=== PATIENT | female | born 1970 | race African-American/Black ===

== ENCOUNTER 2017-01-13 15:46 | Emergency (ER) | payer OTHER ==
[~2017-01-13] VITALS: Ht 152.4 cm; Wt 111.1 kg
[~2017-01-13 15:46] MED LIST: AMITRIPTYLINE50 MG PO; ANUSOL HC30 GM PO; DAYPRO600 M1 PO; HYDROCHLOROTHIA25 MG PO; MEDROL DOSEPAK4 MG PO; NORCO 325 MG-101 TAB PO; PERCOCET 325 MG1 TA2 PO; ROBAXIN750 MG PO; SKELAXIN800 MG PO; SURFAK STOOL S240 MG PO; TRAMADOL50 MG PO; VICODIN 5/500 505 MG PO; VICODIN 500 MG-1 TAB PO; VITAMIN D2000 IU PO; VITAMIN E OIL
[2017-01-13] MEDS ORDERED: MEDROL DOSEPAK4 MG PO (16:44)
== END 2017-01-13 16:49 | disposition home or self-care (01) ==
LOC: ED 15:46
DX: T46.4X5A Adverse effect of angiotensin-converting-enzyme inhibitors, initial encounter (principal); I10 Essential (primary) hypertension; F17.200 Nicotine dependence, unspecified, uncomplicated; Z88.8 Allergy status to other drugs, medicaments and biological substances; Y92.9 Unspecified place or not applicable

== ENCOUNTER → 2017-02-21 | Outpatient (CLI) | payer OTHER | END | disposition home or self-care (01) | LOC: MAMMO 14:02 | DX: Z12.31 Encounter for screening mammogram for malignant neoplasm of breast (principal) ==

== ENCOUNTER → 2017-07-19 | Outpatient (CLI) | payer OTHER ==
[2017-07-19 13:54] LABS: ALBUMIN 2.8 gm/dl (3.1-4.5); ALKALINE PHOSPHATASE 111 U/L (45-117); BUN 3 mg/dl (7-24); CHLORIDE 116 mmol/L (98-107); CHOLESTEROL 103 mg/dL (<200); CREATININE 0.87 mg/dL (0.55-1.02); HDL CHOLESTEROL 50 mg/dl (40-60); LDL CHOLESTEROL 38 mg/dL (9-159); POTASSIUM 3.9 mmol/L (3.5-5.1); SGOT/AST 26 IU/L (3-35); SGPT/ALT 21 U/L (12-78); SODIUM 152 mmol/L (136-145); TOTAL PROTEIN 7.5 gm/dL (6.4-8.2); TRIGLYCERIDES 76 mg/dl (<150); VLDL CHOLESTEROL 15 mg/dL (6-40)
== END | disposition home or self-care (01) ==
LOC: LAB 01:31
PROVIDERS: Family Medicine
DX: I10 Essential (primary) hypertension (principal); E55.9 Vitamin D deficiency, unspecified; R79.89 Other specified abnormal findings of blood chemistry

== ENCOUNTER 2017-12-21 14:12 | Emergency (ER) | payer OTHER ==
[~2017-12-21] VITALS: Ht 152.4 cm; Wt 107.5 kg
--- NOTE | ~2017-12-21 | EKG ---
[place], [place] ELECTROCARDIOGRAM REPORT NAME: TI DALLAS UNIT #: [id number] ROOM: DOCTOR: EPIPHANY DRAFT REPORT BIRTHDATE: [birth year] [facility] Test Date: 2017-12-21 Test Time: 14:50:43 Pat Name: TI DALLAS Department: Room: Gender: F Senior Assistant Manager: EKG.WA : 1970 Requested By: KARLA KOROMA PA-C Order Number: [id number] Reading MD: Valdo Bravo MD Measurements Intervals [place] Rate: 97 P: 22 PA: 151 QRS: 21 QRSD: 95 T: 119 QT: 384 QTc: 488 Interpretive Statements Sinus rhythm Low voltage, precordial leads Nonspecific repol abnormality, diffuse leads Electronically Signed On 12-24-2017 18:35:50 PDT by Valdo Bravo MD CM:EKGRPT:ELECTROCARDIOGRAM REPORT [id number] KARLA KOROMA PA-C EPIPHANY DRAFT REPORT KARLA KOROMA PA-C
[~2017-12-21 14:12] MED LIST changes: -CEPHALEXIN500 M1 PO; -K-TAB20 MEQ PO; -SLOW RELEASE I142 MG PO
[2017-12-21 14:56] LABS: HEMATOCRIT 21.6 % (37.0-47.0); MEAN CELL VOLUME 67.3 fl (81.0-99.0); MEAN CORPUSCULAR HGB 16.8 pg (27.0-31.0); MEAN PLATELET VOLUME 10.3 fl (9.6-12.3); NUCLEATED RED BLOOD CELL 0.3 % (0.0-0.0); PLATELET COUNT AUTOMATED 346 10*3/uL (130-400); RED BLOOD COUNT 3.21 10*6/uL (4.10-5.10); RED CELL DISTRI WIDTH 22.5 % (0-14.5)
[2017-12-21 15:13] LABS: ALBUMIN 3.1 gm/dl (3.1-4.5); ALKALINE PHOSPHATASE 89 U/L (45-117); BUN 5 mg/dl (7-24); CHLORIDE 103 mmol/L (98-107); CREATININE 0.89 mg/dL (0.55-1.02); POTASSIUM 2.9 mmol/L (3.5-5.1); SGOT/AST 15 IU/L (3-35); SGPT/ALT 20 U/L (12-78); SODIUM 138 mmol/L (136-145); TOTAL PROTEIN 7.3 gm/dL (6.4-8.2)
[2017-12-21 15:14] LABS: TROPONIN I < 0.015 ng/ml (<0.045)
[2017-12-21 15:15] LABS: BASOPHILS 1 % (0-1); MICROCYTOSIS MODERATE; PLATELET SUFFICIENCY NORMAL (NORMAL); POLYCHROMASIA SLIGHT; TOTAL CELLS COUNTED 100 #CELLS
[2017-12-21 15:18] LABS: HEMOGLOBIN 5.4 g/dl (12.0-16.0)
[2017-12-21 21:44] LABS: HEMATOCRIT 28.7 % (37.0-47.0)
[2017-12-21] MEDS ORDERED: K-TAB20 MEQ PO (22:24)
[2017-12-21] MEDS ORDERED: SLOW RELEASE I142 MG PO (22:24)
== END 2017-12-21 22:26 | disposition home or self-care (01) ==
LOC: ED 14:12
PROVIDERS: Physician Assistant
DX: D64.9 Anemia, unspecified (principal); E87.6 Hypokalemia; Z98.890 Other specified postprocedural states; Z98.51 Tubal ligation status; Z79.899 Other long term (current) drug therapy; Z88.8 Allergy status to other drugs, medicaments and biological substances; Z88.6 Allergy status to analgesic agent

== ENCOUNTER → 2017-12-21 | Outpatient (CLI) | payer OTHER ==
[~2017-12-21] MED LIST changes: +CEPHALEXIN500 M1 PO; +K-TAB20 MEQ PO; +SLOW RELEASE I142 MG PO
[2017-12-21 11:46] LABS: HEMATOCRIT 22.6 % (37.0-47.0); MEAN CELL VOLUME 67.5 fl (81.0-99.0); MEAN CORPUSCULAR HGB 17.3 pg (27.0-31.0); MEAN CORPUSCULAR HGB CONC 25.7 g/dl (33.0-37.0); MEAN PLATELET VOLUME 9.4 fl (9.6-12.3); NUCLEATED RED BLOOD CELL 0.3 % (0.0-0.0); PLATELET COUNT AUTOMATED 331 10*3/uL (130-400); RED BLOOD COUNT 3.35 10*6/uL (4.10-5.10); RED CELL DISTRI WIDTH 22.5 % (0-14.5); WHITE BLOOD COUNT 6.8 10*3/uL (4.8-10.8)
[2017-12-21 12:07] LABS: BASOPHILS 1 % (0-1); TOTAL CELLS COUNTED 100 #CELLS
[2017-12-21 12:08] LABS: MICROCYTOSIS MODERATE; PLATELET SUFFICIENCY NORMAL (NORMAL); POLYCHROMASIA SLIGHT
[2017-12-21 12:22] LABS: ALBUMIN 3.2 gm/dl (3.1-4.5); ALKALINE PHOSPHATASE 91 U/L (45-117); BUN 5 mg/dl (7-24); CHLORIDE 104 mmol/L (98-107); CREATININE 0.81 mg/dL (0.55-1.02); POTASSIUM 3.8 mmol/L (3.5-5.1); SGOT/AST 29 IU/L (3-35); SGPT/ALT 23 U/L (12-78); SODIUM 137 mmol/L (136-145); TOTAL PROTEIN 7.7 gm/dL (6.4-8.2)
[2017-12-21 13:29] LABS: HEMOGLOBIN 5.8 g/dl (12.0-16.0)
[2017-12-25 05:07] LABS: IMMUNOGLOBULIN IgE 002170 230 IU/mL (0-100)
== END | disposition home or self-care (01) ==
LOC: LAB 11:22
PROVIDERS: Allergy & Immunology
DX: I10 Essential (primary) hypertension (principal); L29.9 Pruritus, unspecified

== ENCOUNTER → 2018-01-04 | Outpatient (CLI) | payer OTHER ==
[~2018-01-04] MED LIST changes: +CEPHALEXIN500 M1 PO; +K-TAB20 MEQ PO; +SLOW RELEASE I142 MG PO
[2018-01-04 15:06] LABS: BUN 5 mg/dl (7-24); CHLORIDE 105 mmol/L (98-107); CREATININE 0.94 mg/dL (0.55-1.02); POTASSIUM 4.1 mmol/L (3.5-5.1); SODIUM 138 mmol/L (136-145)
== END | disposition home or self-care (01) ==
LOC: LAB 13:36 → US 14:00
PROVIDERS: Family Medicine
DX: N92.0 Excessive and frequent menstruation with regular cycle (principal); D25.2 Subserosal leiomyoma of uterus; D50.9 Iron deficiency anemia, unspecified; E87.6 Hypokalemia

== ENCOUNTER 2018-01-11 15:25 | Emergency (ER) | payer OTHER ==
[~2018-01-11] VITALS: Ht 152.4 cm; Wt 107.5 kg
[~2018-01-11 15:25] MED LIST changes: -CEPHALEXIN500 M1 PO
[2018-01-11 16:30] LABS: BASO % 0.4 % (0.0-1.0); EOS # 0.2 10*3/uL (0.0-0.4); EOS % 1.8 % (1.0-4.0); HEMATOCRIT 35.8 % (37.0-47.0); HEMOGLOBIN 10.4 g/dl (12.0-16.0); LYMPH # 2.3 10*3/uL (1.3-4.4); LYMPH % 21.2 % (27.0-41.0); MEAN CELL VOLUME 78.3 fl (81.0-99.0); MEAN CORPUSCULAR HGB 22.8 pg (27.0-31.0); MEAN CORPUSCULAR HGB CONC 29.1 g/dl (33.0-37.0); MEAN PLATELET VOLUME 9.3 fl (9.6-12.3); MONO # 0.6 10*3/uL (0.1-1.0); MONO % 5.1 % (3.0-9.0); NEUT # 7.7 10*3/uL (2.3-7.9); NEUT % 71.2 % (47.0-73.0); PLATELET COUNT AUTOMATED 422 10*3/uL (130-400); RED BLOOD COUNT 4.57 10*6/uL (4.10-5.10); RED CELL DISTRI WIDTH 32.2 % (0-14.5); WHITE BLOOD COUNT 10.8 10*3/uL (4.8-10.8)
[2018-01-11 16:44] LABS: ALBUMIN 3.3 gm/dl (3.1-4.5); ALKALINE PHOSPHATASE 107 U/L (45-117); BUN 6 mg/dl (7-24); CHLORIDE 106 mmol/L (98-107); CREATININE 0.97 mg/dL (0.55-1.02); POTASSIUM 3.4 mmol/L (3.5-5.1); SGOT/AST 14 IU/L (3-35); SGPT/ALT 21 U/L (12-78); SODIUM 141 mmol/L (136-145); TOTAL PROTEIN 7.8 gm/dL (6.4-8.2)
[2018-01-11] MEDS ORDERED: CEPHALEXIN500 M1 PO (17:27)
== END 2018-01-11 17:31 | disposition home or self-care (01) ==
LOC: ED 15:25
PROVIDERS: Nurse Practitioner Family
DX: I82.612 Acute embolism and thrombosis of superficial veins of left upper extremity (principal); Z98.51 Tubal ligation status; Z98.890 Other specified postprocedural states; Z88.8 Allergy status to other drugs, medicaments and biological substances; Z79.899 Other long term (current) drug therapy

== ENCOUNTER → 2018-05-15 | Outpatient (CLI) | payer OTHER ==
[~2018-05-15] MED LIST changes: +CEPHALEXIN500 M1 PO
== END | disposition home or self-care (01) ==
LOC: MAMMO 13:24
DX: Z12.31 Encounter for screening mammogram for malignant neoplasm of breast (principal)

== ENCOUNTER 2018-07-04 12:59 | Emergency (ER) | payer OTHER ==
[~2018-07-04] VITALS: Ht 167.6 cm; Wt 101.2 kg
[~2018-07-04 12:59] MED LIST changes: +HYDROCHLOROTH12.5 M3 PO; -HYDROCHLOROTHIA25 MG PO
[2018-07-04] MEDS ORDERED: ESTRACE2 MG PO (13:07)
[2018-07-04 14:28] LABS: BASO # 0.1 10*3/uL (0.0-0.1); BASO % 0.6 % (0.0-1.0); EOS # 0.3 10*3/uL (0.0-0.4); HEMATOCRIT 34.1 % (37.0-47.0); HEMOGLOBIN 9.8 g/dl (12.0-16.0); LYMPH # 2.7 10*3/uL (1.3-4.4); LYMPH % 29.3 % (27.0-41.0); MEAN CELL VOLUME 78.4 fl (81.0-99.0); MEAN CORPUSCULAR HGB 22.5 pg (27.0-31.0); MEAN CORPUSCULAR HGB CONC 28.7 g/dl (33.0-37.0); MEAN PLATELET VOLUME 9.9 fl (9.6-12.3); MONO # 0.6 10*3/uL (0.1-1.0); MONO % 6.3 % (3.0-9.0); NEUT # 5.6 10*3/uL (2.3-7.9); NEUT % 60.4 % (47.0-73.0); PLATELET COUNT AUTOMATED 590 10*3/uL (130-400); RED BLOOD COUNT 4.35 10*6/uL (4.10-5.10); RED CELL DISTRI WIDTH 21.9 % (0-14.5); WHITE BLOOD COUNT 9.2 10*3/uL (4.8-10.8)
[2018-07-04 14:43] LABS: ALBUMIN 3.4 gm/dl (3.1-4.5); ALKALINE PHOSPHATASE 110 U/L (45-117); BUN 8 mg/dl (7-24); CHLORIDE 103 mmol/L (98-107); CREATININE 0.79 mg/dL (0.55-1.02); POTASSIUM 3.9 mmol/L (3.5-5.1); SGOT/AST 16 IU/L (3-35); SGPT/ALT 35 U/L (12-78); SODIUM 139 mmol/L (136-145); TOTAL PROTEIN 8.4 gm/dL (6.4-8.2)
== END 2018-07-04 15:39 | disposition home or self-care (01) ==
LOC: ED 12:59
PROVIDERS: Nurse Practitioner Family
DX: R09.1 Pleurisy (principal); F17.200 Nicotine dependence, unspecified, uncomplicated; Z79.899 Other long term (current) drug therapy; Z88.8 Allergy status to other drugs, medicaments and biological substances

== ENCOUNTER → 2019-01-16 | Outpatient (CLI) | payer OTHER ==
[~2019-01-16] MED LIST changes: +B12,B-12,B 12500 MC1 PO; +ESTRACE2 MG PO; +IRON325 M1 PO; +KLOR-CON M2020 ME1 PO; +LOPRESSOR25 MG PO; +NATURE'S BLEND F1 MG PO; +TRAMADOL HCL50 MG PO; +VITAMIN D5000 UNI1 PO
[2019-01-16 15:08] LABS: ALBUMIN 3.5 gm/dl (3.1-4.5); BUN 8 mg/dl (7-24); CHLORIDE 106 mmol/L (98-107); CREATININE 0.95 mg/dL (0.55-1.02); POTASSIUM 3.8 mmol/L (3.5-5.1); SGOT/AST 36 IU/L (3-35); SGPT/ALT 41 U/L (12-78); SODIUM 141 mmol/L (136-145); TOTAL PROTEIN 7.6 gm/dL (6.4-8.2)
[2019-01-16 15:17] LABS: ALKALINE PHOSPHATASE 99 U/L (45-117)
== END | disposition home or self-care (01) ==
LOC: LAB 14:07
PROVIDERS: Family Medicine
DX: G60.9 Hereditary and idiopathic neuropathy, unspecified (principal)

== ENCOUNTER 2019-02-01 15:31 | Inpatient (IN) | payer OTHER ==
[~2019-02-01] VITALS: Ht 177.8 cm; Wt 112.6 kg
[2019-02-01] VITALS (8 sets, daily range): BP systolic 110–152; BP diastolic 54–98
--- NOTE | ~2019-02-01 | EKG ---
[place], [place] ELECTROCARDIOGRAM REPORT NAME: TI DALLAS UNIT #: [id number] ROOM: 403 DOCTOR: MAURICIO DRAFT REPORT BIRTHDATE: [birth year] [facility] Test Date: 2019-02-01 Test Time: 22:23:29 Pat Name: TI DALLAS Department: Room: 403 Gender: F Accounting Intern: Edward Jiang : 1970 Requested By: LEONOR KEVIN Order Number: [id number] Reading MD: Manny Quan MD Measurements Intervals [place] Rate: 126 P: 73 [place]: 73 QRS: 38 QRSD: 78 T: 226 QT: 325 QTc: 471 Interpretive Statements Sinus tachycardia with ventricular bigeminy Short [place] interval LAE, consider biatrial enlargement Electronically Signed On 02-02-2019 7:10:10 PDT by Manny Quna MD CM:EKGRPT:ELECTROCARDIOGRAM REPORT [id number] LEONOR MARTÍNEZ DRAFT REPORT LEONOR KEVIN M.D.
--- NOTE | ~2019-02-01 | EKG ---
[place], [place] ELECTROCARDIOGRAM REPORT NAME: TI DALLAS UNIT #: [id number] ROOM: 403 DOCTOR: MAURICIO DRAFT REPORT BIRTHDATE: [birth year] [facility] Test Date: 2019-02-01 Test Time: 23:47:40 Pat Name: TI DALLAS Department: Room: 403 Gender: F Chemistry Intern: Noreen Quan : 1970 Requested By: LEONOR KEVIN Order Number: [id number] Reading MD: Manny Quan MD Measurements Intervals [place] Rate: 112 P: 68 [place]: 132 QRS: 47 QRSD: 79 T: 127 QT: 380 QTc: 519 Interpretive Statements Sinus rhythm Ventricular bigeminy Biatrial enlargement Electronically Signed On 02-02-2019 7:11:26 PDT by Manny Quan MD CM:EKGRPT:ELECTROCARDIOGRAM REPORT [id number] LEONOR MARTÍNEZ DRAFT REPORT LEONOR KEVIN M.D.
--- NOTE | ~2019-02-01 | EKG ---
[place], [place] ELECTROCARDIOGRAM REPORT NAME: TI DALLAS UNIT #: [id number] ROOM: 403 DOCTOR: MAURICIO DRAFT REPORT BIRTHDATE: [birth year] [facility] Test Date: 2019-02-01 Test Time: 15:36:04 Pat Name: TI DALLAS Department: Room: 403 Gender: F Check Clerk: : 1970 Requested By: LEONOR KEVIN Order Number: [id number] Reading MD: Manny Quan MD Measurements Intervals [place] Rate: 73 P: 21 SD: 144 QRS: 38 QRSD: 89 T: 76 QT: 405 QTc: 447 Interpretive Statements Sinus rhythm Multiform ventricular premature complexes Low voltage, precordial leads Nonspecific T abnormalities, anterior leads Compared to ECG 12/21/2017 14:50:43 Ventricular premature complex(es) now present T-wave abnormality now present Electronically Signed On 02-02-2019 7:02:17 PDT by Manny Quan MD CM:EKGRPT:ELECTROCARDIOGRAM REPORT [id number] LEONOR MARTÍNEZ DRAFT REPORT LEONOR KEVIN M.D.
--- NOTE | ~2019-02-01 | PR ---
[place], [place] PROGRESS NOTE [id number] UNIT #: [id number] ROOM: 403 DOCTOR: OLIVIA ROGERS BIRTHDATE: [birth year] DOS: 02/03/2019 CARDIOLOGY PROGRESS NOTE REASON FOR VISIT: The patient is being seen in followup for palpitations, frequent PVCs. SUBJECTIVE: The patient is feeling better today, with less palpitations. Denies chest pain or shortness of breath. Echocardiogram reviewed by me today, showed normal LV systolic function with an EF of 60-65% and no valvular disease. PVC burden has decreased on telemetry and by symptoms. Potassium today was better, but still only 3.8. OBJECTIVE: VITAL SIGNS: Afebrile, pulse 56, respirations 18, blood pressure 91/45, saturating 100% on room air. GENERAL APPEARANCE: Obese lady, sitting in bed, in no distress. NECK: Supple. JVP normal. No carotid bruits. RESPIRATORY: Lungs are clear. CARDIOVASCULAR: Regular rhythm with normal rate. No murmurs. ABDOMEN: Obese. Positive bowel sounds. Soft, nontender. EXTREMITIES: Free of edema. LABORATORY DATA: Hemoglobin 11.9, potassium 3.8, creatinine 1.02. Echo as described with normal LV systolic function, EF 60-65%, no valvular disease. There was mild LVH. CURRENT CARDIAC MEDICATIONS: Include potassium chloride 20 mEq p.o. b.i.d., metoprolol tartrate 25 mg p.o. b.i.d., hydrochlorothiazide 12.5 mg daily. IMPRESSION: 1. Frequent PVCs, in the setting of a structurally normal heart. 2. Hypokalemia. 3. History of hypertension, currently borderline blood pressures. 4. Mild acute diastolic heart failure, completely resolved. 5. Obesity. 6. Untreated sleep apnea. 7. Joint pain. RECOMMENDATIONS: 1. We will continue metoprolol 25 b.i.d. 2. If she remains on hydrochlorothiazide for blood pressure, would send her out with daily potassium supplementation. Though if blood pressures are controlled with metoprolol alone, hydrochlorothiazide and potassium can be stopped altogether. 3. Recommend outpatient sleep study. 4. Counseled on risk factor modification including weight loss and smoking cessation. 5. She can follow up with me in the office in a couple of weeks. She can be discharged from my standpoint. [place], [place] PROGRESS NOTE NAME: TI DALLAS UNIT #: [id number] ROOM: 403 DOCTOR: OLIVIA ROGERS BIRTHDATE: [birth year] DrGlenna ROGERS MD CM:PNTRANS [id number] OLIVIA ROGERS 02/03/19 1648 interface
--- NOTE | ~2019-02-01 | CON ---
[place], [place] REPORT OF CONSULTATION NAME: TI DALLAS UNIT #: [id number] ROOM: 403 DOCTOR: OLIVIA ROGERS BIRTHDATE: [birth year] DOS: 02/02/2019 CARDIOLOGY CONSULTATION REASON FOR CONSULTATION: Frequent PVCs. REQUESTING PHYSICIAN: Dr. Zhang Vora. HISTORY OF PRESENT ILLNESS: The patient is a very pleasant 48-year-old female with a history of hypertension and obesity, no prior cardiac history. She presents for evaluation of joint pain as well as palpitations. She was over the past 2-3 weeks has significant palpitations. They are frequent and bothersome. She has had prior history of this in the past, particularly when she was about 20 years ago, at which time she states the palpitations are even worse. She recalls having Holter monitor at that time, but never received any specific diagnosis or treatment. She did have an echocardiogram in our system from 2014 that showed normal LV systolic function with an EF of 65%, mild LVH. Otherwise, she has had no cardiac evaluations. She also states she has had some shortness of breath with exertion over the past few weeks, which is new, she has attributed to smoking. She has noted some lower extremity edema, which she says has been there for several years. She had difficulty with ambulation, mainly due to chronic back pain and back surgery that limits her ability to walk any significant distance. She denies any dizziness, lightheadedness, syncope. No family history of sudden cardiac . In the ER, she was noted to have very frequent PVCs, bigeminy and trigeminy and has persisted with this pattern throughout the night and throughout the day today on telemetry. Her potassium was noted to be slightly low at 3.6 yesterday and even lower today at 3.2 after she had received some IV furosemide. Chest x-ray did demonstrate mild vascular congestion. Today, she does not feel any different. She still feels palpitations. The other main problem that brought her for evaluation with severe joint pain and tingling in the hands, which has been going on for several months, she is being evaluated by her PCP was apparently found to have a positive SEDRICK on some blood work. REVIEW OF SYSTEMS: As described above. Additionally, the patient states that she was supposed to have gotten out a sleep study, but this was never able to be arranged, she is sure she has sleep apnea, but has never been treated. Additionally, she has had allergies to multiple medications including losartan, which caused angioedema. She has been on hydrochlorothiazide since about the beginning of this year. Did not recall being told she has had low potassium levels, does not take any regular potassium supplementation. Remainder of the review of systems negative except as described above. PAST MEDICAL HISTORY: Hypertension, chronic back pain, obesity, anemia related to heavy menstrual bleeding. PAST SURGICAL HISTORY: Back surgery, spinal fusion, abdominal hysterectomy. [place], [place] REPORT OF CONSULTATION NAME: TI DALLAS UNIT #: [id number] ROOM: 403 DOCTOR: OLIVIA ROGERS BIRTHDATE: [birth year] SOCIAL HISTORY: She is . 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 She is an active smoker. Also, reports alcohol and marijuana use. FAMILY HISTORY: Her mother had history of diabetes and is . Father's medical history is unknown. ALLERGIES: Listed to LISINOPRIL, BACLOFEN, PREGABALIN AND LOSARTAN she also be listed. HOME MEDICATIONS: Include hydrochlorothiazide 12.5 mg daily, tramadol, ferrous sulfate. PHYSICAL EXAMINATION: VITAL SIGNS: Afebrile, pulse 60, respirations 20, blood pressure 122/60, saturating 100% on room air. GENERAL APPEARANCE: She is a middle-aged, obese, black female, lying in bed, in no distress. ENT: Moist mucous membranes. NECK: Supple. JVP is normal. No carotid bruits. RESPIRATORY: Lungs mostly clear with scant basilar rales. CARDIOVASCULAR: Irregular with frequent ectopic beats. No murmurs. ABDOMEN: Obese. Positive bowel sounds. Soft, nontender. EXTREMITIES: Warm, well perfused. Moves all extremities. There is trivial edema pretibially. SKIN: No lesions or rashes. NEUROLOGICAL: Nonfocal. LABORATORY DATA: Hemoglobin 12.3, platelets 330. Today, potassium 3.2, BUN 10, creatinine 0.99, hemoglobin A1c 5.8%. Magnesium is 2.2. Three sets of troponins negative. Liver functions normal. LDL cholesterol is 65. TSH and free T4 are within normal limits. Chest x-ray showed mild vascular congestion. Electrocardiogram showed sinus rhythm with ventricular bigeminy suggestion of biatrial enlargement as well. Previous EKG showed sinus tachycardia with ventricular bigeminy. Initial EKG shows sinus rhythm, 73 beats per minute with multiform PVCs. IMPRESSION: 1. Frequent PVCs including couplets, bigeminy, trigeminy. 2. No previous history of structural heart disease except for mild left ventricular hypertrophy by echo in 2015. 3. Hypokalemia. 4. Hypertension. 5. Appears to be mild acute heart failure, unclear systolic or diastolic, resolved with a couple doses of IV diuretics. 6. Obesity. [place], [place] REPORT OF CONSULTATION NAME: TI DALLAS UNIT #: [id number] ROOM: 403 DOCTOR: LOIVIA ROGERS BIRTHDATE: [birth year] 7. Untreated sleep apnea. 8. Joint pain for which she is being evaluated. RECOMMENDATIONS: 1. Given the frequency of the PVCs, as well as the new finding of mild heart failure, I am concerned for a cardiomyopathy. It is possible that she may have an underlying cardiomyopathy causing to have a frequent PVCs, on the other hand, frequent PVCs could lead to development of a cardiomyopathy as well. 2. A 2D echocardiogram will be done tomorrow. 3. We will start metoprolol tartrate because of the frequency of the PVCs and they are symptomatic, 25 p.o. b.i.d. 4. Aggressive potassium replacement, keep potassium greater than 4, magnesium greater than 2. 5. Recommend outpatient sleep study. 6. Risk factor modification to include weight loss. She is certainly limited physical activity because of her chronic back issues. 7. Can continue her hydrochlorothiazide, may need regular potassium supplementation since she has had allergies and intolerance to other antihypertensive medications. 8. Smoking cessation counseling also provided. Thank you for the consultation. We will continue to follow. Dr. OLIVIA ROGERS MD CM:CONSTR:REPORT OF CONSULTATION 1222 02/02/19 [id number] interface
[~2019-02-01 15:31] MED LIST changes: -B12,B-12,B 12500 MC1 PO; -IRON325 M1 PO; -KLOR-CON M2020 ME1 PO; -LOPRESSOR25 MG PO; -NATURE'S BLEND F1 MG PO; -TRAMADOL HCL50 MG PO; -VITAMIN D5000 UNI1 PO
[2019-02-01 15:50] LABS: BASO # 0.1 10*3/uL (0.0-0.1); BASO % 0.7 % (0.0-1.0); EOS # 0.2 10*3/uL (0.0-0.4); EOS % 2.5 % (1.0-4.0); HEMATOCRIT 39.9 % (37.0-47.0); HEMOGLOBIN 12.6 g/dl (12.0-16.0); LYMPH # 1.9 10*3/uL (1.3-4.4); LYMPH % 27.6 % (27.0-41.0); MEAN CELL VOLUME 87.1 fl (81.0-99.0); MEAN CORPUSCULAR HGB 27.5 pg (27.0-31.0); MEAN CORPUSCULAR HGB CONC 31.6 g/dl (33.0-37.0); MEAN PLATELET VOLUME 10.7 fl (9.6-12.3); MONO # 0.7 10*3/uL (0.1-1.0); MONO % 10.9 % (3.0-9.0); NEUT % 58.2 % (47.0-73.0); PLATELET COUNT AUTOMATED 359 10*3/uL (130-400); RED BLOOD COUNT 4.58 10*6/uL (4.10-5.10); RED CELL DISTRI WIDTH 18.9 % (0-14.5); WHITE BLOOD COUNT 6.8 10*3/uL (4.8-10.8)
[2019-02-01] MEDS ORDERED: TRAMADOL HCL50 MG PO (15:59)
[2019-02-01] MEDS ORDERED: IRON325 M1 PO (15:59)
[2019-02-01 16:08] LABS: ALBUMIN 3.4 gm/dl (3.1-4.5); ALKALINE PHOSPHATASE 96 U/L (45-117); BUN 6 mg/dl (7-24); CHLORIDE 106 mmol/L (98-107); CREATININE 0.96 mg/dL (0.55-1.02); POTASSIUM 3.6 mmol/L (3.5-5.1); SGOT/AST 25 IU/L (3-35); SGPT/ALT 33 U/L (12-78); SODIUM 141 mmol/L (136-145); TOTAL PROTEIN 7.4 gm/dL (6.4-8.2)
[2019-02-01 16:09] LABS: TROPONIN I < 0.015 ng/ml (<0.045)
[2019-02-01 16:15] LABS: ACT PARTIAL THROMBO TIME 22.8 SECONDS (20.0-32.1); INTERNATIONAL NORM RATIO 0.9 (2.0-3.5)
--- NOTE | 2019-02-01 18:05 | NUR ---
A 48, admitted to , under the services of JUDSON Galdamez DO with a diagnosis of PULMONARY CONGESTION,PALPITATIONS,CARDIAC ARRYTHMIA, . Chief complaint is SHORTNESS OF BREATH. Patient arrived via bed from ER. Monitor applied. Initial assessment completed. Vital signs taken and recorded. JUDSON GALDAMEZ DO notified of admission to the unit. Orders received. See assessment for past medical history, medications and allergies. Patient and/or family oriented to unit. [facility] visitation policy reviewed. Clothing/patient valuable form completed. KARLA SALMERON
--- NOTE | 2019-02-01 19:16 | NUR ---
CONSULT CALLED TO DR ROGERS ANSWERING SERVICE. MESSAGE LEFT ON ANSWERING SERVICE. AWAITING CALL BACK. WILL NOTIFY PM SHIFT.
--- NOTE | 2019-02-01 20:14 | NUR ---
DR THACKER NOTIFIED THAT MED REC IS UPDATED PER PATIENT.
--- NOTE | 2019-02-01 22:00 | NUR ---
PATIENT REQUESTING MEDICATION FOR ARTHRITIC PAIN. NORCO ADMINISTERED PRESCRIBED. WILL MONITOR FOR PAIN.
--- NOTE | 2019-02-01 23:00 | NUR ---
PATIENT RESTING WITH EYES CLOSED AT THIS TIME. WILL MONITOR.
[2019-02-02] VITALS: BP 136/52
--- NOTE | 2019-02-02 01:24 | NUR ---
24 HR chart check completed.
--- NOTE | 2019-02-02 06:07 | NUR ---
PATIENT REQUESTING PAIN MEDICATION FOR ARTHRITIC PAIN RATED 7/10 ON 0/10. NORCO ADMINISTERED PRESCRIBED. WILL MONITOR FOR EFFECTIVENESS.
[2019-02-02 06:25] LABS: BASO # 0.1 10*3/uL (0.0-0.1); BASO % 1.2 % (0.0-1.0); EOS # 0.2 10*3/uL (0.0-0.4); HEMOGLOBIN 12.3 g/dl (12.0-16.0); LYMPH # 2.2 10*3/uL (1.3-4.4); LYMPH % 38.5 % (27.0-41.0); MEAN CELL VOLUME 86.7 fl (81.0-99.0); MEAN CORPUSCULAR HGB 27.3 pg (27.0-31.0); MEAN CORPUSCULAR HGB CONC 31.5 g/dl (33.0-37.0); MEAN PLATELET VOLUME 11.1 fl (9.6-12.3); MONO # 0.5 10*3/uL (0.1-1.0); MONO % 8.5 % (3.0-9.0); NEUT # 2.7 10*3/uL (2.3-7.9); NEUT % 48.6 % (47.0-73.0); PLATELET COUNT AUTOMATED 330 10*3/uL (130-400); RED CELL DISTRI WIDTH 18.7 % (0-14.5); WHITE BLOOD COUNT 5.6 10*3/uL (4.8-10.8)
[2019-02-02 06:39] LABS: ACT PARTIAL THROMBO TIME 22.8 SECONDS (20.0-32.1); INTERNATIONAL NORM RATIO 0.9 (2.0-3.5)
[2019-02-02 06:42] LABS: ALBUMIN 2.9 gm/dl (3.1-4.5); ALKALINE PHOSPHATASE 93 U/L (45-117); BUN 10 mg/dl (7-24); CHLORIDE 107 mmol/L (98-107); CHOLESTEROL 156 mg/dL (<200); CREATININE 0.99 mg/dL (0.55-1.02); FREE T4 1.05 ng/dl (0.76-1.46); HDL CHOLESTEROL 72 mg/dl (40-60); LDL CHOLESTEROL 65 mg/dL (9-159); PHOSPHOROUS 4.1 mg/dL (2.5-4.9); POTASSIUM 3.2 mmol/L (3.5-5.1); SGOT/AST 21 IU/L (3-35); SGPT/ALT 30 U/L (12-78); SODIUM 143 mmol/L (136-145); TOTAL PROTEIN 6.7 gm/dL (6.4-8.2); TRIGLYCERIDES 96 mg/dl (<150); VLDL CHOLESTEROL 19 mg/dL (6-40)
--- NOTE | 2019-02-02 07:51 | NUR ---
Shift chart check completed.
[2019-02-02 08:00] VITALS: BP 122/60
[2019-02-02 08:14] LABS: VITAMIN D, 25-HYDROXY 13.6 ng/mL (30-100)
[2019-02-02 12:00] VITALS: BP 105/61
--- NOTE | 2019-02-02 12:20 | NUR ---
IV STARTED LEFT FOREARM #22, GOOD BLOOD RETURN, PT TOLERATED WELL.
--- NOTE | 2019-02-02 12:36 | NUR ---
PT EDUCATED ON METOPROLOL FIRST DOSE. PT UNDERSTANDS MEDICATION
[2019-02-02 16:00] VITALS: BP 106/66
--- NOTE | 2019-02-02 19:35 | NUR ---
PT COMPLAIN OF BACK, ARM/HAND ARTHRITIS PAIN, 12/11 - NORCO GIVEN. SEE EMAR
--- NOTE | 2019-02-02 19:53 | NUR ---
24 HR chart check completed.
[2019-02-02 20:00] VITALS: BP 121/65; BP 95/52
--- NOTE | 2019-02-02 20:00 | NUR ---
RESTING IN BED WITH NO DISTRESS NOTED. RESPIRATIONS EASY. LUNGS DIMINISHED, CLEAR. PULSE OX 97% RA. DENIES PALPITATIONS. CALL LIGHT WITHIN REACH. NO VOICED COMPLAINTS
[2019-02-02 22:00] VITALS: BP 110/68
--- NOTE | 2019-02-02 22:10 | NUR ---
REQUESTED AND RECEIVED ULTRAM PER PRN ORDER FOR COMPLAINTS OF BACK AND JOINT PAIN RATING A 10. CALL LIGHT WITHIN REACH. WILL MONITOR FOR EFFECTIVENESS
--- NOTE | 2019-02-02 23:30 | NUR ---
EARLIER MEDS APPEAR EFFECTIVE. SLEEPING. RESPIRATIONS EASY. CALL LIGHT WITHIN REACH
[2019-02-03] VITALS: BP 116/60
--- NOTE | 2019-02-03 00:37 | NUR ---
MEDICATED WITH NORCO PER PRN ORDER FOR COMPLAINTS OF BACK AND JOINT PAIN RATING A 5. CALL LIGHT WITHIN REACH. WILL MONITOR FOR EFFECTIVENESS
--- NOTE | 2019-02-03 02:00 | NUR ---
MEDS APPEAR EFFECTIVE. SLEEPING. RESPIRATIONS EASY. CALL LIGHT WITHIN REACH
--- NOTE | 2019-02-03 06:00 | NUR ---
SLEPT THROUGHOUT NIGHT WITH NO DISTRESS NOTED. RESPIRATIONS EASY. CALL LIGHT WITHIN REACH
[2019-02-03 06:37] LABS: BASO # 0.1 10*3/uL (0.0-0.1); BASO % 0.9 % (0.0-1.0); EOS # 0.2 10*3/uL (0.0-0.4); EOS % 3.2 % (1.0-4.0); HEMOGLOBIN 11.9 g/dl (12.0-16.0); LYMPH # 2.4 10*3/uL (1.3-4.4); LYMPH % 42.7 % (27.0-41.0); MEAN CELL VOLUME 88.4 fl (81.0-99.0); MEAN CORPUSCULAR HGB 27.7 pg (27.0-31.0); MEAN CORPUSCULAR HGB CONC 31.3 g/dl (33.0-37.0); MONO # 0.5 10*3/uL (0.1-1.0); MONO % 9.2 % (3.0-9.0); NEUT # 2.4 10*3/uL (2.3-7.9); NEUT % 43.8 % (47.0-73.0); PLATELET COUNT AUTOMATED 324 10*3/uL (130-400); WHITE BLOOD COUNT 5.6 10*3/uL (4.8-10.8)
[2019-02-03 06:57] LABS: BUN 13 mg/dl (7-24); CHLORIDE 105 mmol/L (98-107); CREATININE 1.02 mg/dL (0.55-1.02); POTASSIUM 3.8 mmol/L (3.5-5.1); SODIUM 140 mmol/L (136-145)
--- NOTE | 2019-02-03 07:00 | NUR ---
REQUESTED AND RECEIVED NORCO PER PRN ORDER FOR COMPLAINTS OF LOWER BACK PAIN RATING A 10. CALL LIGHT WITHIN REACH. WILL MONITOR FOR EFFECTIVENESS
[2019-02-03 08:00] VITALS: BP 118/72
[2019-02-03 12:00] VITALS: BP 91/45
--- NOTE | 2019-02-03 13:33 | NUR ---
24 HOUR CHART CHECK COMPLETE.
[2019-02-03] MEDS ORDERED: B12,B-12,B 12500 MC1 PO (13:52)
[2019-02-03] MEDS ORDERED: VITAMIN D5000 UNI1 PO (13:52)
[2019-02-03] MEDS ORDERED: NATURE'S BLEND F1 MG PO (13:52)
[2019-02-03] MEDS ORDERED: LOPRESSOR25 MG PO (13:52)
[2019-02-03] MEDS ORDERED: KLOR-CON M2020 ME1 PO (13:52)
[2019-02-03 14:00] VITALS: BP 106/62
--- NOTE | 2019-02-03 14:42 | NUR ---
Discharge instructions reviewed with patient/family. Patient receptive and verbalizes understanding. Follow-up care arranged. Written instructions given to patient/family. SARAH DAMON
== END 2019-02-03 14:42 | disposition home or self-care (01) | DRG 291 ==
LOC: ED 15:31 → EDHOLD 17:40 → 4E 17:51
PROVIDERS: Emergency Medicine; Internal Medicine; ADMIT Internal Medicine
DX: I11.0 Hypertensive heart disease with heart failure (principal); I50.31 Acute diastolic (congestive) heart failure; E44.0 Moderate protein-calorie malnutrition; I49.9 Cardiac arrhythmia, unspecified; R09.89 Other specified symptoms and signs involving the circulatory and respiratory systems; R00.2 Palpitations; G47.30 Sleep apnea, unspecified; E83.41 Hypermagnesemia; M19.91 Primary osteoarthritis, unspecified site; E66.01 Morbid (severe) obesity due to excess calories; G89.29 Other chronic pain; M54.5 Low back pain; E87.6 Hypokalemia; F17.210 Nicotine dependence, cigarettes, uncomplicated; Z88.8 Allergy status to other drugs, medicaments and biological substances; Z90.710 Acquired absence of both cervix and uterus; Z90.79 Acquired absence of other genital organ(s); Z90.722 Acquired absence of ovaries, bilateral; Z98.1 Arthrodesis status; Z83.3 Family history of diabetes mellitus; Z81.8 Family history of other mental and behavioral disorders; Z79.899 Other long term (current) drug therapy; Z71.6 Tobacco abuse counseling; Z71.3 Dietary counseling and surveillance; Z68.35 Body mass index [BMI] 35.0-35.9, adult

== ENCOUNTER → 2019-02-06 | Outpatient (CLI) | payer OTHER ==
[~2019-02-06] MED LIST changes: +B12,B-12,B 12500 MC1 PO; +IRON325 M1 PO; +KLOR-CON M2020 ME1 PO; +LOPRESSOR25 MG PO; +NATURE'S BLEND F1 MG PO; +TRAMADOL HCL50 MG PO; +VITAMIN D5000 UNI1 PO
[2019-02-06 12:03] LABS: BUN 6 mg/dl (7-24); CHLORIDE 106 mmol/L (98-107); CREATININE 0.87 mg/dL (0.55-1.02); SODIUM 140 mmol/L (136-145)
[2019-02-07 14:09] LABS: SJOGREN ANTI-SS-A <0.2 AI (0.0-0.9); SJOREN AB, ANTI-SS-B <0.2 AI (0.0-0.9)
[2019-02-08 12:05] LABS: LUPUS DRVVT 33.5 sec (0.0-47.0); LUPUS REFLEX INTERPRETATION Comment: (.); PTT-LA 28.9 sec (0.0-51.9)
[2019-02-10 12:07] LABS: METHYLMALONIC ACID 134 nmol/L (0-378)
== END | disposition home or self-care (01) ==
LOC: LAB 11:05
PROVIDERS: Family Medicine
DX: E53.8 Deficiency of other specified B group vitamins (principal); E87.6 Hypokalemia; E83.41 Hypermagnesemia; R76.0 Raised antibody titer

== ENCOUNTER → 2019-02-07 | Outpatient (CLI) | payer OTHER ==
[2019-02-07 14:25] LABS: BUN 7 mg/dl (7-24); CHLORIDE 109 mmol/L (98-107); CREATININE 0.95 mg/dL (0.55-1.02); SODIUM 142 mmol/L (136-145)
== END | disposition home or self-care (01) ==
LOC: LAB 00:30
PROVIDERS: Student in an Organized Health Care Education/Training Program
DX: E87.6 Hypokalemia (principal); I49.9 Cardiac arrhythmia, unspecified; R00.2 Palpitations

== ENCOUNTER → 2019-03-06 | Outpatient (CLI) | payer OTHER ==
[~2019-03-06] MED LIST changes: +KEFLEX500 M1 PO; +SEPTDS PO
== END | disposition home or self-care (01) ==
LOC: LAB 15:21
DX: E53.8 Deficiency of other specified B group vitamins (principal)

== ENCOUNTER 2019-04-07 15:36 | Emergency (ER) | payer OTHER ==
[~2019-04-07] VITALS: Ht 152.4 cm; Wt 108.9 kg
[~2019-04-07 15:36] MED LIST changes: -KEFLEX500 M1 PO; -SEPTDS PO
[2019-04-07] MEDS ORDERED: SEPTDS PO (17:53)
[2019-04-07] MEDS ORDERED: KEFLEX500 M1 PO (17:53)
== END 2019-04-07 18:02 | disposition home or self-care (01) ==
LOC: ED 15:36
DX: L02.411 Cutaneous abscess of right axilla (principal); L02.01 Cutaneous abscess of face; L73.2 Hidradenitis suppurativa; F17.210 Nicotine dependence, cigarettes, uncomplicated; Z88.8 Allergy status to other drugs, medicaments and biological substances; Z79.899 Other long term (current) drug therapy

== ENCOUNTER → 2019-04-11 | Outpatient (CLI) | payer OTHER ==
[~2019-04-11] MED LIST changes: +KEFLEX500 M1 PO; +SEPTDS PO
== END | disposition home or self-care (01) ==
LOC: LAB 14:52
DX: R53.83 Other fatigue (principal)

== ENCOUNTER → 2019-04-23 | Outpatient (CLI) | payer OTHER ==
[2019-04-23 16:03] LABS: BASO % 0.6 % (0.0-1.0); EOS # 0.1 10*3/uL (0.0-0.4); EOS % 1.6 % (1.0-4.0); HEMATOCRIT 45.4 % (37.0-47.0); HEMOGLOBIN 13.9 g/dl (12.0-16.0); LYMPH # 1.8 10*3/uL (1.3-4.4); LYMPH % 25.5 % (27.0-41.0); MEAN CELL VOLUME 91.3 fl (81.0-99.0); MEAN CORPUSCULAR HGB CONC 30.6 g/dl (33.0-37.0); MEAN PLATELET VOLUME 10.6 fl (9.6-12.3); MONO # 0.6 10*3/uL (0.1-1.0); MONO % 8.2 % (3.0-9.0); NEUT # 4.5 10*3/uL (2.3-7.9); NEUT % 63.8 % (47.0-73.0); PLATELET COUNT AUTOMATED 290 10*3/uL (130-400); RED BLOOD COUNT 4.97 10*6/uL (4.10-5.10); RED CELL DISTRI WIDTH 15.7 % (0-14.5); WHITE BLOOD COUNT 7.1 10*3/uL (4.8-10.8)
[2019-04-23 16:16] LABS: IRON 120 ug/dL (50-170); TOTAL IRON BINDING CAPACITY 418 ug/dl (250-450)
[2019-04-23 16:29] LABS: FERRITIN 14.2 ng/mL (10.0-291.0)
[2019-04-24 15:07] LABS: t-TRANSGLUTAMINASE (tTG) IGA <2 U/mL (0-3); t-TRANSGLUTAMINASE (tTG) IgG <2 U/mL (0-5)
== END | disposition home or self-care (01) ==
LOC: LAB 15:35
PROVIDERS: Physician Assistant
DX: D50.9 Iron deficiency anemia, unspecified (principal)

== ENCOUNTER → 2019-10-30 | Outpatient (CLI) | payer OTHER | END | disposition home or self-care (01) | LOC: RAD 14:51 | DX: M48.061 Spinal stenosis, lumbar region without neurogenic claudication (principal); M51.36 Other intervertebral disc degeneration, lumbar region; M54.9 Dorsalgia, unspecified; Z98.1 Arthrodesis status ==

== ENCOUNTER 2019-11-15 00:06 | Emergency (ER) | payer OTHER ==
[~2019-11-15] VITALS: Ht 152.4 cm; Wt 108.9 kg
[2019-11-15 01:45] LABS: BASO # 0.1 10*3/uL (0.0-0.1); BASO % 0.8 % (0.0-1.0); EOS # 0.1 10*3/uL (0.0-0.4); EOS % 1.5 % (1.0-4.0); HEMATOCRIT 42.1 % (37.0-47.0); LYMPH # 2.2 10*3/uL (1.3-4.4); LYMPH % 24.2 % (27.0-41.0); MEAN CELL VOLUME 90.3 fl (81.0-99.0); MEAN CORPUSCULAR HGB 28.5 pg (27.0-31.0); MEAN CORPUSCULAR HGB CONC 31.6 g/dl (33.0-37.0); MEAN PLATELET VOLUME 10.3 fl (9.6-12.3); MONO # 0.8 10*3/uL (0.1-1.0); MONO % 9.2 % (3.0-9.0); NEUT # 5.8 10*3/uL (2.3-7.9); PLATELET COUNT AUTOMATED 346 10*3/uL (130-400); RED BLOOD COUNT 4.66 10*6/uL (4.10-5.10); RED CELL DISTRI WIDTH 13.8 % (0-14.5); WHITE BLOOD COUNT 9.1 10*3/uL (4.8-10.8)
[2019-11-15] MEDS ORDERED: FEROSUL325 MG PO (01:56)
[2019-11-15] MEDS ORDERED: IBU800 M1 PO (01:56)
[2019-11-15] MEDS ORDERED: CETIRIZINE HYDR10 MG PO (01:57)
[2019-11-15] MEDS ORDERED: TRAMADOL HCL50 MG PO (01:57)
[2019-11-15] MEDS ORDERED: ESTRADIOL1 MG PO (01:57)
[2019-11-15 01:58] LABS: INTERNATIONAL NORM RATIO 0.9 (2.0-3.5)
[2019-11-15 02:03] LABS: ALBUMIN 3.2 gm/dl (3.1-4.5); ALKALINE PHOSPHATASE 89 U/L (45-117); BUN 6 mg/dl (7-24); CHLORIDE 110 mmol/L (98-107); LIPASE 438 U/L (73-393); POTASSIUM 3.5 mmol/L (3.5-5.1); SGOT/AST 19 IU/L (3-35); SGPT/ALT 36 U/L (12-78); SODIUM 140 mmol/L (136-145); TOTAL PROTEIN 7.4 gm/dL (6.4-8.2)
[2019-11-15 02:08] LABS: TROPONIN I < 0.015 ng/ml (<0.045)
[2019-11-15] MEDS ORDERED: MIRALAX119 GM PO (03:13)
[2019-11-15] MEDS ORDERED: ANUSOL-HC25 MG R (03:13)
== END 2019-11-15 03:51 | disposition home or self-care (01) ==
LOC: ED 00:06
PROVIDERS: Nurse Practitioner Family
DX: K64.9 Unspecified hemorrhoids (principal); I10 Essential (primary) hypertension; F17.200 Nicotine dependence, unspecified, uncomplicated; Z88.8 Allergy status to other drugs, medicaments and biological substances; Z79.899 Other long term (current) drug therapy

== ENCOUNTER → 2020-01-12 | Outpatient (CLI) | payer OTHER ==
[~2020-01-12] MED LIST changes: +ANUSOL-HC25 MG R; +CETIRIZINE HYDR10 MG PO; +ESTRADIOL1 MG PO; +FEROSUL325 MG PO; +IBU800 M1 PO; +MIRALAX119 GM PO
== END | disposition home or self-care (01) ==
LOC: MAMMO 12-30 17:00
DX: Z12.31 Encounter for screening mammogram for malignant neoplasm of breast (principal)

== ENCOUNTER → 2020-02-05 | Outpatient (CLI) | payer OTHER | END | disposition home or self-care (01) | LOC: MRI 14:00 | PROVIDERS: ATTEND Family Medicine | DX: M47.815 Spondylosis without myelopathy or radiculopathy, thoracolumbar region (principal); M47.817 Spondylosis without myelopathy or radiculopathy, lumbosacral region; M51.36 Other intervertebral disc degeneration, lumbar region; M48.061 Spinal stenosis, lumbar region without neurogenic claudication ==

== ENCOUNTER → 2020-02-20 | Outpatient (CLI) | payer OTHER ==
[~2020-02-20] MED LIST changes: +CYMBALTA30 MG PO
== END | disposition home or self-care (01) ==
LOC: COVID19 00:38
PROVIDERS: ATTEND Internal Medicine Gastroenterology
DX: Z20.828 Contact with and (suspected) exposure to other viral communicable diseases (principal)

== ENCOUNTER → 2020-02-27 | Day surgery (SDC) | payer OTHER ==
[~2020-02-27] VITALS: Ht 152.4 cm; Wt 111.1 kg
[2020-02-27 07:04] VITALS: BP 135/64
[2020-02-27 08:20] VITALS: BP 142/83
[2020-02-27 08:35] VITALS: BP 105/80
[2020-02-27 08:49] VITALS: BP 115/84
== END | disposition home or self-care (01) ==
LOC: SDC 02-23 08:00
PROVIDERS: ATTEND Internal Medicine Gastroenterology
DX: D64.9 Anemia, unspecified (principal); K64.8 Other hemorrhoids; K57.30 Diverticulosis of large intestine without perforation or abscess without bleeding; K63.5 Polyp of colon; I11.0 Hypertensive heart disease with heart failure; I50.9 Heart failure, unspecified; F41.9 Anxiety disorder, unspecified; Z87.891 Personal history of nicotine dependence; Z88.8 Allergy status to other drugs, medicaments and biological substances; Z79.899 Other long term (current) drug therapy

== ENCOUNTER → 2020-04-12 | Outpatient (CLI) | payer OTHER | END | disposition home or self-care (01) | LOC: RAD 15:06 | PROVIDERS: ATTEND Internal Medicine Gastroenterology | DX: J98.4 Other disorders of lung (principal); Z13.9 Encounter for screening, unspecified ==

== ENCOUNTER → 2020-07-02 | Outpatient (CLI) | payer OTHER | END | disposition home or self-care (01) | LOC: COVID19 10:03 | PROVIDERS: ATTEND Anesthesiology | DX: Z01.818 Encounter for other preprocedural examination (principal); Z20.822 Contact with and (suspected) exposure to COVID-19 ==

== ENCOUNTER → 2020-12-24 | Outpatient (CLI) | payer OTHER | END | disposition home or self-care (01) | LOC: MRI 13:00 | PROVIDERS: ATTEND Physical Medicine & Rehabilitation Sports Medicine | DX: M48.02 Spinal stenosis, cervical region (principal); M50.30 Other cervical disc degeneration, unspecified cervical region; G31.89 Other specified degenerative diseases of nervous system; G35 Multiple sclerosis; M25.78 Osteophyte, vertebrae ==

== ENCOUNTER 2021-01-21 18:04 | Emergency (ER) | payer OTHER ==
[2021-01-21] MEDS ORDERED: CEPHALEXIN500 M1 PO (18:49)
== END 2021-01-21 18:49 | disposition home or self-care (01) ==
LOC: ED 18:04
DX: L02.01 Cutaneous abscess of face (principal); F17.210 Nicotine dependence, cigarettes, uncomplicated; Z88.8 Allergy status to other drugs, medicaments and biological substances; Z79.899 Other long term (current) drug therapy

== ENCOUNTER 2021-01-25 18:45 | Emergency (ER) | payer OTHER ==
[2021-01-25 20:07] LABS: BASO % 0.5 % (0.0-1.0); EOS # 0.1 10*3/uL (0.0-0.4); EOS % 1.5 % (1.0-4.0); HEMATOCRIT 38.9 % (37.0-47.0); LYMPH # 1.9 10*3/uL (1.3-4.4); LYMPH % 23.5 % (27.0-41.0); MEAN CELL VOLUME 91.1 fl (81.0-99.0); MEAN CORPUSCULAR HGB 27.9 pg (27.0-31.0); MEAN CORPUSCULAR HGB CONC 30.6 g/dl (33.0-37.0); MEAN PLATELET VOLUME 10.5 fl (9.6-12.3); MONO # 0.6 10*3/uL (0.1-1.0); MONO % 7.6 % (3.0-9.0); NEUT # 5.3 10*3/uL (2.3-7.9); NEUT % 66.6 % (47.0-73.0); PLATELET COUNT AUTOMATED 286 10*3/uL (130-400); RED BLOOD COUNT 4.27 10*6/uL (4.10-5.10); RED CELL DISTRI WIDTH 14.8 % (0-14.5); WHITE BLOOD COUNT 7.9 10*3/uL (4.8-10.8)
[2021-01-25 20:22] LABS: ALBUMIN 3.4 gm/dl (3.1-4.5); ALKALINE PHOSPHATASE 88 U/L (45-117); BUN 7 mg/dl (7-24); CHLORIDE 104 mmol/L (98-107); CREATININE 0.81 mg/dL (0.55-1.02); LIPASE 84 U/L (73-393); POTASSIUM 3.6 mmol/L (3.5-5.1); SGOT/AST 25 IU/L (3-35); SGPT/ALT 27 U/L (12-78); SODIUM 139 mmol/L (136-145); TOTAL PROTEIN 7.3 gm/dL (6.4-8.2)
[2021-01-25] MEDS ORDERED: ANUSOL-HC25 MG R (20:50)
[2021-01-25] MEDS ORDERED: CEPHALEXIN500 M1 PO (21:01)
== END 2021-01-25 21:02 | disposition home or self-care (01) ==
LOC: ED 18:45
PROVIDERS: Physician Assistant
DX: K64.9 Unspecified hemorrhoids (principal); H57.89 Other specified disorders of eye and adnexa; F17.210 Nicotine dependence, cigarettes, uncomplicated; Z88.8 Allergy status to other drugs, medicaments and biological substances; Z79.899 Other long term (current) drug therapy

== ENCOUNTER → 2021-02-15 | Outpatient (CLI) | payer OTHER | LOC: MAMMO 02-02 14:00 | PROVIDERS: ATTEND Family Medicine | DX: Z12.31 Encounter for screening mammogram for malignant neoplasm of breast (principal) ==

== ENCOUNTER 2021-04-19 14:45 | Observation (INO) | payer OTHER ==
[~2021-04-19] VITALS: Ht 152.4 cm; Wt 112.9 kg
[2021-04-19 14:56] VITALS: BP 151/87
[2021-04-19 15:24] LABS: BASO # 0.1 10*3/uL (0.0-0.1); BASO % 0.8 % (0.0-1.0); EOS # 0.2 10*3/uL (0.0-0.4); EOS % 2.6 % (1.0-4.0); LYMPH # 1.6 10*3/uL (1.3-4.4); LYMPH % 25.7 % (27.0-41.0); MEAN CELL VOLUME 88.2 fl (81.0-99.0); MEAN CORPUSCULAR HGB 27.1 pg (27.0-31.0); MEAN CORPUSCULAR HGB CONC 30.7 g/dl (33.0-37.0); MEAN PLATELET VOLUME 10.8 fl (9.6-12.3); MONO # 0.3 10*3/uL (0.1-1.0); MONO % 5.5 % (3.0-9.0); NEUT # 4.1 10*3/uL (2.3-7.9); NEUT % 65.1 % (47.0-73.0); PLATELET COUNT AUTOMATED 275 10*3/uL (130-400); RED BLOOD COUNT 4.65 10*6/uL (4.10-5.10); RED CELL DISTRI WIDTH 14.1 % (0-14.5); WHITE BLOOD COUNT 6.2 10*3/uL (4.8-10.8)
[2021-04-19 15:35] LABS: ACT PARTIAL THROMBO TIME 24.5 SECONDS (20.0-32.1)
[2021-04-19 15:42] LABS: ALBUMIN 3.2 gm/dl (3.1-4.5); ALKALINE PHOSPHATASE 94 U/L (45-117); BUN 6 mg/dl (7-24); CHLORIDE 105 mmol/L (98-107); CREATININE 0.85 mg/dL (0.55-1.02); POTASSIUM 3.5 mmol/L (3.5-5.1); SGOT/AST 18 IU/L (3-35); SGPT/ALT 32 U/L (12-78); SODIUM 141 mmol/L (136-145); TOTAL PROTEIN 7.3 gm/dL (6.4-8.2); TROPONIN I < 0.015 ng/ml (<0.045)
[2021-04-19 15:55] VITALS: BP 129/63
[2021-04-19 17:04] VITALS: BP 142/88
[2021-04-19 23:01] VITALS: BP 146/71
[2021-04-20 01:07] VITALS: BP 148/72
[2021-04-20 03:24] VITALS: BP 138/74
[2021-04-20 04:16] LABS: BASO # 0.1 10*3/uL (0.0-0.1); BASO % 0.6 % (0.0-1.0); EOS # 0.1 10*3/uL (0.0-0.4); EOS % 1.5 % (1.0-4.0); HEMATOCRIT 39.9 % (37.0-47.0); LYMPH # 2.1 10*3/uL (1.3-4.4); MEAN CELL VOLUME 88.9 fl (81.0-99.0); MEAN CORPUSCULAR HGB 26.9 pg (27.0-31.0); MEAN CORPUSCULAR HGB CONC 30.3 g/dl (33.0-37.0); MONO # 0.4 10*3/uL (0.1-1.0); MONO % 5.2 % (3.0-9.0); NEUT # 5.1 10*3/uL (2.3-7.9); NEUT % 65.6 % (47.0-73.0); PLATELET COUNT AUTOMATED 239 10*3/uL (130-400); RED BLOOD COUNT 4.49 10*6/uL (4.10-5.10); RED CELL DISTRI WIDTH 14.2 % (0-14.5); WHITE BLOOD COUNT 7.8 10*3/uL (4.8-10.8)
[2021-04-20 04:33] LABS: ALBUMIN 2.9 gm/dl (3.1-4.5); ALKALINE PHOSPHATASE 85 U/L (45-117); BUN 5 mg/dl (7-24); CHLORIDE 108 mmol/L (98-107); CHOLESTEROL 187 mg/dL (<200); CREATININE 0.81 mg/dL (0.55-1.02); LDL CHOLESTEROL 85 mg/dL (9-159); POTASSIUM 3.6 mmol/L (3.5-5.1); SGOT/AST 23 IU/L (3-35); SGPT/ALT 29 U/L (12-78); SODIUM 141 mmol/L (136-145); TOTAL PROTEIN 6.7 gm/dL (6.4-8.2); TRIGLYCERIDES 126 mg/dl (<150)
[2021-04-20 06:35] VITALS: BP 142/70
[2021-04-20] MEDS ORDERED: OMEPRAZOLE MAGN20 MG PO (14:24)
[2021-04-20] MEDS ORDERED: ZYRTEC10 M3 PO (14:25)
[2021-04-20] MEDS ORDERED: COLACE100 MG PO (14:26)
[2021-04-20] MEDS ORDERED: PANTOPRAZOLE SO40 MG PO (14:27)
== END 2021-04-20 14:45 | disposition home or self-care (01) ==
LOC: ED 14:45 → 5E 17:30 → EDHOLD 17:30 → 5E 04-20 12:15
PROVIDERS: Emergency Medicine; Family Medicine; ADMIT Family Medicine; ATTEND Family Medicine
DX: R07.89 Other chest pain (principal); R00.2 Palpitations; M25.512 Pain in left shoulder; M54.9 Dorsalgia, unspecified; G89.29 Other chronic pain; R10.13 Epigastric pain; R73.9 Hyperglycemia, unspecified; E44.0 Moderate protein-calorie malnutrition; R06.02 Shortness of breath; M19.90 Unspecified osteoarthritis, unspecified site; G47.30 Sleep apnea, unspecified; I10 Essential (primary) hypertension; E66.01 Morbid (severe) obesity due to excess calories; F17.210 Nicotine dependence, cigarettes, uncomplicated; Z68.41 Body mass index [BMI] 40.0-44.9, adult; Z79.899 Other long term (current) drug therapy

== ENCOUNTER 2021-07-28 16:37 | Emergency (ER) | payer OTHER ==
[~2021-07-28] VITALS: Ht 152.4 cm; Wt 117.9 kg
[~2021-07-28 16:37] MED LIST changes: +COLACE100 MG PO; +OMEPRAZOLE MAGN20 MG PO; +PANTOPRAZOLE SO40 MG PO; +ZYRTEC10 M3 PO
[2021-07-28 17:37] LABS: BASO # 0.1 10*3/uL (0.0-0.1); BASO % 0.6 % (0.0-1.0); EOS # 0.1 10*3/uL (0.0-0.4); EOS % 1.6 % (1.0-4.0); HEMATOCRIT 40.3 % (37.0-47.0); LYMPH # 1.9 10*3/uL (1.3-4.4); LYMPH % 24.4 % (27.0-41.0); MEAN CELL VOLUME 88.8 fl (81.0-99.0); MEAN CORPUSCULAR HGB 27.3 pg (27.0-31.0); MEAN CORPUSCULAR HGB CONC 30.8 g/dl (33.0-37.0); MEAN PLATELET VOLUME 10.4 fl (9.6-12.3); MONO # 0.6 10*3/uL (0.1-1.0); MONO % 7.1 % (3.0-9.0); NEUT # 5.1 10*3/uL (2.3-7.9); NEUT % 65.9 % (47.0-73.0); PLATELET COUNT AUTOMATED 320 10*3/uL (130-400); RED BLOOD COUNT 4.54 10*6/uL (4.10-5.10); RED CELL DISTRI WIDTH 15.1 % (0-14.5); WHITE BLOOD COUNT 7.7 10*3/uL (4.8-10.8)
[2021-07-28 17:54] LABS: ALKALINE PHOSPHATASE 95 U/L (45-117); BUN 6 mg/dl (7-24); CHLORIDE 109 mmol/L (98-107); CREATININE 0.92 mg/dL (0.55-1.02); POTASSIUM 4.2 mmol/L (3.5-5.1); SGOT/AST 23 IU/L (3-35); SGPT/ALT 31 U/L (12-78); SODIUM 142 mmol/L (136-145); TOTAL PROTEIN 7.1 gm/dL (6.4-8.2)
[2021-07-28 18:02] LABS: THYROID STIM HORMONE (HS) 0.682 uIU/ml (0.358-4.75)
== END 2021-07-28 19:48 | disposition home or self-care (01) ==
LOC: ED 16:37
PROVIDERS: Physician Assistant
DX: M79.671 Pain in right foot (principal); Z88.8 Allergy status to other drugs, medicaments and biological substances; Z79.899 Other long term (current) drug therapy; Z90.710 Acquired absence of both cervix and uterus; Z87.891 Personal history of nicotine dependence; Z98.51 Tubal ligation status; Z98.890 Other specified postprocedural states

== ENCOUNTER → 2021-11-09 | Outpatient (CLI) | payer MEDICARE, MEDICAID | LOC: US 10-10 10:30 | PROVIDERS: ATTEND Family Medicine | DX: M71.21 Synovial cyst of popliteal space [Baker], right knee (principal); I70.203 Unspecified atherosclerosis of native arteries of extremities, bilateral legs; I73.9 Peripheral vascular disease, unspecified ==

== ENCOUNTER → 2021-11-22 | Outpatient (CLI) | payer MEDICARE, MEDICAID ==
[2021-11-22 16:07] LABS: HEMATOCRIT 45.5 % (37.0-47.0); MEAN CELL VOLUME 89.9 fl (81.0-99.0); MEAN CORPUSCULAR HGB 27.5 pg (27.0-31.0); MEAN CORPUSCULAR HGB CONC 30.5 g/dl (33.0-37.0); MEAN PLATELET VOLUME 10.9 fl (9.6-12.3); PLATELET COUNT AUTOMATED 354 10*3/uL (130-400); RED BLOOD COUNT 5.06 10*6/uL (4.10-5.10); RED CELL DISTRI WIDTH 14.7 % (0-14.5); WHITE BLOOD COUNT 7.2 10*3/uL (4.8-10.8)
[2021-11-22 16:08] LABS: MANUAL DIFF REFLEX YES
[2021-11-22 16:18] LABS: IRON 51 ug/dL (50-170); TOTAL IRON BINDING CAPACITY 316 ug/dl (250-450)
[2021-11-22 16:29] LABS: ATYPICAL LYMPHS 4 % (0-0); TOTAL CELLS COUNTED 100 #CELLS
[2021-11-22 16:30] LABS: PLATELET SUFFICIENCY NORMAL (NORMAL)
[2021-11-22 16:38] LABS: FERRITIN 89.4 ng/mL (10.0-291.0)
== END | disposition home or self-care (01) ==
LOC: LAB 15:43
PROVIDERS: ATTEND Physician Assistant
DX: E53.8 Deficiency of other specified B group vitamins (principal); E61.1 Iron deficiency

== ENCOUNTER → 2022-02-13 | Outpatient (CLI) | payer MEDICARE, MEDICAID | END | disposition home or self-care (01) | LOC: RAD 16:03 | PROVIDERS: ATTEND Family Medicine | DX: M25.561 Pain in right knee (principal); M25.562 Pain in left knee ==

== ENCOUNTER → 2022-06-22 | Outpatient (CLI) | payer MEDICARE, MEDICAID | END | disposition home or self-care (01) | LOC: MAMMO 11:30 | PROVIDERS: ATTEND Family Medicine | DX: Z12.31 Encounter for screening mammogram for malignant neoplasm of breast (principal); N63.20 Unspecified lump in the left breast, unspecified quadrant ==

== ENCOUNTER 2022-09-23 18:12 | Emergency (ER) | payer MEDICARE, MEDICAID ==
[~2022-09-23] VITALS: Ht 152.4 cm; Wt 111.1 kg
[~2022-09-23 18:12] MED LIST changes: +ASPIRIN ADULT L81 M2 PO; +METAMUCIL FIBE3.4 GM PO
[2022-09-23 19:26] LABS: BASO # 0.1 10*3/uL (0.0-0.1); BASO % 0.6 % (0.0-1.0); EOS # 0.1 10*3/uL (0.0-0.4); EOS % 1.3 % (1.0-4.0); HEMATOCRIT 43.9 % (37.0-47.0); LYMPH # 2.4 10*3/uL (1.3-4.4); MEAN CELL VOLUME 85.9 fl (81.0-99.0); MEAN CORPUSCULAR HGB 26.4 pg (27.0-31.0); MEAN CORPUSCULAR HGB CONC 30.8 g/dl (33.0-37.0); MEAN PLATELET VOLUME 10.9 fl (9.6-12.3); MONO # 0.6 10*3/uL (0.1-1.0); MONO % 8.1 % (3.0-9.0); NEUT # 4.6 10*3/uL (2.3-7.9); NEUT % 58.9 % (47.0-73.0); PLATELET COUNT AUTOMATED 314 10*3/uL (130-400); RED BLOOD COUNT 5.11 10*6/uL (4.10-5.10); RED CELL DISTRI WIDTH 15.3 % (0-14.5); WHITE BLOOD COUNT 7.8 10*3/uL (4.8-10.8)
[2022-09-23 20:07] LABS: BILIRUBIN Negative (Negative); BLOOD Negative (Negative); CLARITY Cloudy (Clear); COLOR Dark Yellow (Yellow); GLUCOSE Negative (Negative); KETONE 1+ (Negative); LEUKO ESTERASE Negative (Negative); NITRITE Negative (Negative); PH 5.5 (4.5-8.0); SPECIFIC GRAVITY >= 1.030 (1.001-1.030)
[2022-09-23 20:19] LABS: EPITHELIAL CELLS 21-30; RBC 0-2 rbc/hpf (0-2); WBC 0-2 wbc/hpf (0-5)
[2022-09-23 20:20] LABS: ALKALINE PHOSPHATASE 90 U/L (46-116); BUN < 5 mg/dl (9-23); CHLORIDE 103 mmol/L (98-107); POTASSIUM 3.3 mmol/L (3.4-5.1); SGPT/ALT 12 U/L (10-49); TOTAL PROTEIN 7.7 gm/dL (6.0-8.0)
[2022-09-23] MEDS ORDERED: CIPRO500 MG PO (20:42)
[2022-09-23] MEDS ORDERED: METRONIDAZOLE500 M1 PO (20:42)
== END 2022-09-23 20:58 | disposition home or self-care (01) ==
LOC: ED 18:12
PROVIDERS: Physician Assistant
DX: K52.9 Noninfective gastroenteritis and colitis, unspecified (principal); I11.0 Hypertensive heart disease with heart failure; I50.9 Heart failure, unspecified; R11.0 Nausea; Z88.8 Allergy status to other drugs, medicaments and biological substances; Z90.710 Acquired absence of both cervix and uterus; Z98.890 Other specified postprocedural states; Z98.51 Tubal ligation status; F12.90 Cannabis use, unspecified, uncomplicated; F17.210 Nicotine dependence, cigarettes, uncomplicated

== ENCOUNTER → 2023-07-11 | Outpatient (CLI) | payer OTHER, MEDICAID ==
[~2023-07-11] MED LIST changes: +CIPRO500 MG PO; +METRONIDAZOLE500 M1 PO
== END | disposition home or self-care (01) ==
LOC: CT 15:00
PROVIDERS: ATTEND Family Medicine
DX: K57.30 Diverticulosis of large intestine without perforation or abscess without bleeding (principal); R91.1 Solitary pulmonary nodule; M43.26 Fusion of spine, lumbar region; I96 Gangrene, not elsewhere classified; Z90.710 Acquired absence of both cervix and uterus; Z96.698 Presence of other orthopedic joint implants

== ENCOUNTER → 2023-07-31 | Outpatient (CLI) | payer OTHER, MEDICAID | END | disposition home or self-care (01) | LOC: MAMMO 02:06 | PROVIDERS: ATTEND Family Medicine | DX: Z12.31 Encounter for screening mammogram for malignant neoplasm of breast (principal) ==

== ENCOUNTER → 2023-11-27 | Outpatient (CLI) | payer MEDICARE, MEDICAID | END | disposition home or self-care (01) | LOC: RAD 14:47 | PROVIDERS: ATTEND Family Medicine | DX: M25.552 Pain in left hip (principal) ==